=== PATIENT | male | born 1975 | race Caucasian/White ===

== ENCOUNTER → 2024-10-10 14:09 | Outpatient (REF) | payer BC, SELFPAY | LOC: HWRAD 14:09 | PROVIDERS: ATTENDING PHYSICIAN Family Medicine | DX: R59.0 Localized enlarged lymph nodes (principal); E04.1 Nontoxic single thyroid nodule | CPT/HCPCS: 71046; 76536 ==

== ENCOUNTER → 2024-10-21 08:54 | Outpatient (REF) | payer BC, SELFPAY | LOC: WDC 08:54 | PROVIDERS: ATTENDING PHYSICIAN Family Medicine | DX: R59.0 Localized enlarged lymph nodes (principal); N63.31 Unspecified lump in axillary tail of the right breast | CPT/HCPCS: 76642; 77062; 77066 ==